=== PATIENT | female | born 2000 | race Caucasian/White ===

== ENCOUNTER 2022-06-10 19:52 | Emergency (ER) | payer OTHER ==
[~2022-06-10] VITALS: Ht 152.4 cm; Wt 86.2 kg
[2022-06-10 20:25] VITALS: BP 134/73
--- NOTE | 2022-06-10 20:28 | NUR ---
IN TRIAGE ASSESSING PT.
--- NOTE | 2022-06-10 20:29 | NUR ---
PT TO [facility]
[2022-06-10] MEDS ORDERED: diphenhydrAMINE 50 MG/ML VIAL IVP ONE (20:35)
[2022-06-10] MEDS ORDERED: methylPREDNISolone SS 125 MG/2 ML VIAL IVP ONE (20:35)
[2022-06-10] MEDS ORDERED: NACL 0.9% 1,000 ML IV ONE ×2 (20:35→21:55)
[2022-06-10 21:03] LABS: BASOPHILS % (AUTO) 0.4 % (0.0-2.0); EOSINOPHILS % (AUTO) 0.3 % (0.0-4.0); HEMATOCRIT 34.3 % (36-48); HEMOGLOBIN 11.2 g/dL (12.0-16.0); LYMPHOCYTES # (AUTO) 1.1 K/uL (2.5-16.5); LYMPHOCYTES % (AUTO) 18.1 % (20.5-51.1); MEAN CORPUSCULAR HEMOGLOBIN 24 pg (27-31); MEAN CORPUSCULAR HGB CONC 33 g/dL (33-37); MEAN CORPUSCULAR VOLUME 74.8 fL (80-94); MONOCYTES # (AUTO) 0.6 K/uL (0.8-1.0); MONOCYTES % (AUTO) 10.7 % (1.7-9.3); NEUTROPHILS # (AUTO) 4.1 K/uL (1.8-7.7); NEUTROPHILS % (AUTO) 70.5 % (42.2-75.2); PLATELET COUNT (AUTO) 215 K/uL (140-450); RED BLOOD CELL COUNT(AUTO) 4.59 MIL/uL (4.20-5.40); RED CELL DISTRIBUTION WIDTH 17.5 % (11.6-13.7); WHITE BLOOD COUNT (AUTO) 5.8 K/uL (4.8-10.8)
[2022-06-10] MEDS ORDERED: FAMOTIDINE 20 MG/2 ML VIAL IVP ONE (21:10)
[2022-06-10 21:22] LABS: APPEARANCE,URINE CLEAR (CLEAR); BILIRUBIN,URINE NEGATIVE (NEGATIVE); BLOOD, URINE 1+ (NEGATIVE); COLOR,URINE YELLOW (YELLOW); LEUKOCYTE ESTERASE ,URINE NEGATIVE (NEGATIVE); NITRITE, URINE NEGATIVE (NEGATIVE); UGLUCOSE NEGATIVE (NEGATIVE)
[2022-06-10 21:23] LABS: ANION GAP 13.7 (8-16); CARBON DIOXIDE 26.5 mmol/L (21-32); CREATININE 0.9 mg/dL (0.6-1.3); POTASSIUM 4.2 mmol/L (3.5-5.1)
[2022-06-10 21:29] LABS: ALBUMIN 3.7 g/dL (3.4-5.0); TOTAL BILIRUBIN 0.2 mg/dL (0.0-1.0)
--- NOTE | 2022-06-10 21:39 | NUR ---
pt is here becuase itchingness all over here body.
--- NOTE | 2022-06-10 21:41 | NUR ---
alert oriented x 4, room air and ambulatory.
--- NOTE | 2022-06-10 21:50 | NUR ---
was at the bedside.
[2022-06-10] MEDS ORDERED: PRED20TA5 PO (22:18)
[2022-06-10] MEDS ORDERED: DIPH25TA53 PO (22:18)
[2022-06-10 22:19] LABS: RBC,URINE 0-5 /HPF (0-5); WBC,URINE 0-5 /HPF (0-5)
[2022-06-10 23:20] VITALS: BP 113/67
--- NOTE | 2022-06-10 23:21 | NUR ---
Patient discharged with v/s stable. Written and verbal after care instructions given and explained. Patient verbalized understanding. Ambulatory with steady gait. All questions addressed prior to discharge. Advised to follow up with PMD. Pt left with her belongings.
== END 2022-06-10 23:20 | disposition home or self-care (01) ==
LOC: MED 19:52
DX: L50.9 Urticaria, unspecified (principal); T78.49XA Other allergy, initial encounter; X58.XXXA Exposure to other specified factors, initial encounter
CPT/HCPCS: 36415; 80053; 81001; 81025; 85025; 93005; 96361; 96374; 96375; 99284; J1200; J2930; J3490; J7030